=== PATIENT | female | born 1960 | race African-American/Black ===

== ENCOUNTER 2022-11-06 16:07 | Emergency (ER) | payer OTHER ==
[2022-11-06 16:15] VITALS: TEMP 97.8
--- NOTE | 2022-11-06 17:23 | XR ---
EXAMINATION TYPE: XR foot complete RT DATE OF EXAM: 11/06/2022 COMPARISON: None HISTORY: Pain TECHNIQUE: 3 view right foot FINDINGS: Has been a prior bunionectomy. Joint spaces appear preserved. No acute fracture or dislocat ion is evident. Soft tissues appear normal. Plantar calcaneal heel spur is present. Follow up exams can be performed as clinically indicated. IMPRESSION: 1. No acute osseous abnormality right foot
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
[2022-11-06] MEDS ORDERED: SODIUM CHLORIDE 0.9% 1,000 ML IV ONE (19:08)
[2022-11-06 19:54] LABS: Basophils % (A) 0 %; Eosinophils # (A) 0.2 k/uL (0-0.7); Eosinophils % (A) 3 %; HCT 35.3 % (34.0-46.0); HGB 11.2 gm/dL (11.4-16.0); Lymphocytes # (A) 2.4 k/uL (1.0-4.8); Lymphocytes % (A) 48 %; MCH 25.7 pg (25.0-35.0); MCHC 31.7 g/dL (31.0-37.0); Mean Platelet Volume 8.5; Monocytes # (A) 0.3 k/uL (0-1.0); Monocytes % (A) 6 %; Neutrophils % (A) 41 %; Platelet Count 204 k/uL (150-450); RBC 4.35 m/uL (3.80-5.40); RDW 14.7 % (11.5-15.5)
[2022-11-06 20:14] LABS: ALT 14 U/L (4-34); AST 21 U/L (14-36); African American GFR (CKD) >90 (>60 ml/min/1.73 sqM); Albumin 3.3 g/dL (3.5-5.0); Alcohol <10 mg/dL; Alkaline Phosphatase 102 U/L (38-126); Anion Gap 7 mmol/L; Blood Urea Nitrogen 13 mg/dL (7-17); Calcium 8.2 mg/dL (8.4-10.2); Carbon Dioxide 27 mmol/L (22-30); Chloride 103 mmol/L (98-107); Glucose 94 mg/dL (74-99); Non-African American GFR(CKD) >90 (>60 ml/min/1.73 sqM); Potassium 4.1 mmol/L (3.5-5.1); Sodium 137 mmol/L (137-145); Total Bilirubin 0.3 mg/dL (0.2-1.3); Total Protein 6.9 g/dL (6.3-8.2)
--- NOTE | 2022-11-06 20:34 | CT ---
EXAMINATION TYPE: CT brain wo con DATE OF EXAM: 11/06/2022 HISTORY: AMS CT DLP: 1159.4 mGycm. Automated Exposure Control for Dose Reduction was Utilized. TECHNIQUE: CT scan of the head is performed without contrast. COMPARISON: 10/27/2021 FINDINGS: There is no acute intracranial hemorrhage or midline shift identified. There is no mass or mass effect or definite acute attenuation defect. The globes are intact and the visualized sinuses ar e clear. IMPRESSION: No acute intracranial hemorrhage or midline shift. There is diffuse age-related cerebra l atrophy and chronic small vessel ischemic change noted.
[2022-11-06] MEDS ORDERED: NALOXONE 0.4 MG/ML 1 ML VIAL IVP STA (21:17)
[2022-11-06] MEDS ORDERED: ONDANSETRON 4 MG/2 ML VIAL IVP STA (21:19)
[2022-11-06 22:33] LABS: Appearance,Urine Clear (Clear); Bilirubin,Urine Negative (Negative); Blood,Urine Negative (Negative); Color,Urine Light Red; Glucose,Urine (UA) Negative (Negative); Ketones,Urine Negative (Negative); Leukocyte Esterase,Urine Negative (Negative); Nitrite,Urine Negative (Negative); PH, Urine 6.5 (5.0-8.0); Protein,Urine Negative (Negative); Specific Gravity,Urine 1.023 (1.001-1.035)
[2022-11-06 23:06] LABS: Amphetamine Screen,Urine Not Detected (NotDetected); Barbiturate Screen,Urine Not Detected (NotDetected); Benzodiazepines Screen,Urine Detected (NotDetected); Cocaine Screen,Urine Detected (NotDetected); Methadone Screen, Urine Detected (NotDetected); Opiate Screen,Urine Not Detected (NotDetected); Oxycodone Screen, Urine Not Detected (NotDetected); Phencyclidine Screen,Urine Not Detected (NotDetected); Tricyclic Antidepressant,Urine Not Detected (NotDetected); Urn Cannabinoid Scrn Not Detected (NotDetected)
[2022-11-07 05:41] VITALS: RESP 18
[2022-11-07 09:30] VITALS: BP 165/94; PULSE 80
== END 2022-11-07 09:15 | disposition home or self-care (01) ==
LOC: EC 16:07
DX: F19.10 Other psychoactive substance abuse, uncomplicated (principal); I10 Essential (primary) hypertension; F14.90 Cocaine use, unspecified, uncomplicated; F17.200 Nicotine dependence, unspecified, uncomplicated; F32.A Depression, unspecified; Z79.84 Long term (current) use of oral hypoglycemic drugs; Z79.899 Other long term (current) drug therapy
CPT/HCPCS: 36415; 80053; 85025; 81003; 80306; 73630; 70450; 99284; 96374; 96375; 96361; G0480; J2310; J2405; 80320